=== PATIENT | male | born 1950 | race Two or more races ===

== ENCOUNTER → 2017-10-05 | Emergency (ER) | payer OTHER ==
[~2017-10-05] VITALS: Ht 177.8 cm; Wt 91.6 kg
[~2017-10-05] MED LIST: APIDRA100 UNIT/1; ATORVASTATIN CA10 MG; CALCIUM 600+D1 EACH; CIALIS5 MG; DESCOVY 200-251 EACH; DIOVAN HCT 3201 EACH; FOLIC ACID1 MG; FORTAMET1000 MG; INVOKANA100 MG; ISENTRESS400 MG; MONTELUKAST SOD10 MG; NORVASC5 MG; PANTOPRAZOLE SO40 MG; SYMBICORT 16010.2 GM; TOUJEO SOL300 UNIT/1; VITAMIN D2000 UNIT
== END | disposition home or self-care (01) ==
LOC: ER 13:01
DX: K29.70 Gastritis, unspecified, without bleeding (principal)

== ENCOUNTER 2019-01-17 10:28 | Outpatient (CLI) | payer OTHER | END 2019-01-17 10:40 | disposition home or self-care (01) | LOC: SONOGRAMA 10:28 | DX: M12.9 Arthropathy, unspecified (principal); M19.90 Unspecified osteoarthritis, unspecified site ==

== ENCOUNTER → 2020-04-28 06:47 | Outpatient (CLI) | payer OTHER | END | disposition home or self-care (01) | LOC: LAB 06:47 | PROVIDERS: ATTEND Internal Medicine Cardiovascular Disease | DX: D64.0 Hereditary sideroblastic anemia (principal); R97.0 Elevated carcinoembryonic antigen [CEA]; Z12.11 Encounter for screening for malignant neoplasm of colon; E55.9 Vitamin D deficiency, unspecified; I10 Essential (primary) hypertension; E11.9 Type 2 diabetes mellitus without complications; E03.8 Other specified hypothyroidism; E78.2 Mixed hyperlipidemia; N40.0 Benign prostatic hyperplasia without lower urinary tract symptoms ==

== ENCOUNTER 2020-05-04 07:52 | Outpatient (CLI) | payer OTHER | END 2020-05-04 08:03 | disposition home or self-care (01) | LOC: TOM 07:52 | PROVIDERS: ATTEND Internal Medicine Cardiovascular Disease | DX: R51 Headache (principal); R41.2 Retrograde amnesia; I63.50 Cerebral infarction due to unspecified occlusion or stenosis of unspecified cerebral artery | CPT/HCPCS: 70470; Q9965 ==

== ENCOUNTER 2023-09-13 10:02 | Outpatient (CLI) | payer OTHER | END 2023-09-13 10:06 | disposition home or self-care (01) | LOC: SONOGRAMA 10:02 | PROVIDERS: ATTEND Pathology Anatomic Pathology & Clinical Pathology | DX: C76.0 Malignant neoplasm of head, face and neck (principal); J02.9 Acute pharyngitis, unspecified; D44.0 Neoplasm of uncertain behavior of thyroid gland ==

== ENCOUNTER 2023-11-13 11:09 | Emergency (ER) | payer OTHER ==
[~2023-11-13] VITALS: Ht 170.2 cm; Wt 54.4 kg
[2023-11-13] MEDS ORDERED: 0.9 % SODIUM CHLORIDE 1,000 ML IV STA (13:53)
[2023-11-13 14:50] LABS: HEMATOCRIT 42.3 % (39.0-48.0); HEMOGLOBIN 14.1 g/dL (13-16.00); MEAN CELL VOLUME 85.1 fL (80.0-100.00); MEAN CORPUSCULAR HEMOGLOBIN 28.3 pg (27.00-32.0); MEAN CORPUSCULAR HGB CONC 33.2 g/dl (32.0-36.0); PLATELET COUNT 229 K/uL (150-450); RED BLOOD COUNT 4.97 M/uL (4.00-6.00); RED CELL DISTRIBUTION WIDTH 14.5 % (11.5-14.5)
[2023-11-13 15:17] LABS: BILIRUBIN TOTAL 0.93 mg/dL (0.3-1.2); CALCIUM 10.6 mg/dL (8.5-10.1); CREATININE SERUM 1.27 mg/dL (0.70-1.30); GFR 55.74; GLOBULINA 3.3 G/DL (2.4-3.5); POTASSIUM 3.75 mEq/L (3.5-5.1); TOTAL PROTEIN 7.3 gm/dL (6.4-8.2)
[2023-11-13 16:08] LABS: PH,URINE 5.5 (5.0-8.0); URINE APPEARANCE Clear; URINE BILIRRUBIN Negative (NEGATIVE); URINE BLOOD Negative; URINE COLOR Yellow; URINE LEUKOCYTE Negative; URINE NITRATE Negative; URINE PROTEIN Negative (NEGATIVE)
[2023-11-13 16:21] LABS: URINE GLUCOSE >=1000 MG/DL (NEGATIVE); URINE RBC 1.4 uL (0.0-20.8)
[2023-11-13 16:22] LABS: URINE WBC 0.4 uL (0.0-23.2)
== END 2023-11-13 18:12 | disposition home or self-care (01) ==
LOC: ER 11:09
PROVIDERS: General Practice
DX: E11.65 Type 2 diabetes mellitus with hyperglycemia (principal); Z79.4 Long term (current) use of insulin; E78.00 Pure hypercholesterolemia, unspecified; I10 Essential (primary) hypertension; I73.89 Other specified peripheral vascular diseases
CPT/HCPCS: 36415; 70551; 76700; 96365; 96366; 99284; J7030